=== PATIENT | male | born 2000 | race Hispanic/Latino ===

== ENCOUNTER 2023-09-30 22:52 | Emergency (ER) | payer SELFPAY ==
[2023-09-30 22:56] VITALS: BP 131/84
[2023-09-30 23:17] VITALS: BMI 20.9
[2023-09-30 23:33] LABS: % Basophils 0.3 % (0-2); % Eosinophils 0.4 % (0-6); % Immature Granulocytes 0.4 % (0-0.5); % Lymphocytes 5.9 % (20.5-51.1); % Monocytes 6.4 % (1.7-9.3); % Neutrophils 86.6 % (42.2-75.2); Absolute Basophils 0.1 10^3/uL (0-0.2); Absolute Eosinophils 0.1 10^3/uL (0-0.7); Absolute Immature Granulocytes 0.1 10^3/uL (0-0.05); Absolute Lymphocytes 1.1 10^3/uL (1.2-3.4); Absolute Monocytes 1.2 10^3/uL (0.1-0.6); Hematocrit 39.2 % (39.0-52.0); Hemoglobin 14.3 g/dL (13.0-18.0); Mean Corp Hgb Conc. 36.5 g/dL (33.0-37.0); Mean Corpuscular Hgb 30.4 pg (27.0-31.0); Mean Corpuscular Volume 83.2 fL (80.0-94.0); Mean Platelet Volume 9.7 fL (7.4-10.4); Nucleated Red Blood Cells % 0 % (-); Platelet Count 200 10^3/uL (130-400); Red Blood Cell Count 4.71 10^6/uL (4.70-6.10); Red Cell Dist. Width 12.5 % (11.5-14.5); White Blood Cell Count 18.5 10^3/uL (4.8-10.8)
[2023-09-30 23:35] VITALS: BP 116/74
[2023-09-30 23:43] LABS: ALT (SGPT) 23 U/L (0-50); AST (SGOT) 33 U/L (17-59); Albumin 4.9 g/dl (3.5-5.0); Alkaline Phosphatase 138 U/L (38-126); Blood Urea Nitrogen 18 mg/dl (9-20); Calcium 9.3 mg/dl (8.4-10.2); Carbon Dioxide 23 mmol/L (22-30); Chloride 103 mmol/L (98-107); Estimated Creatinine Clearance 116 ml/min; Glucose 148 mg/dl (70-99); Potassium 3.8 mmol/L (3.5-5.1); Sodium 140 mmol/L (135-145); Total Bilirubin 1.7 mg/dl (0.2-1.3); Total Protein 7.8 g/dl (6.3-8.2); eGFR > 60.00
[2023-09-30 23:55] LABS: Troponin I < 0.012 ng/ml
[2023-10-01] VITALS: BP 110/77
--- NOTE | 2023-10-01 00:25 | ED.GENMED ---
History of Present Illness
General
Chief Complaint: Abdominal Symptoms
Source: patient and tobacco hanger (Language line)
Exam Limitations: other (language barrier)
Time Seen by Provider: 10/01/23 00:23
History of Present Illness
History of Present Illness:
This is a 23 year old male that comes in with multiple complaints. Stats that he has left arm numbness and pain. State that his left chest hurts and that he is nauseated. State that he has 'pain in his brain'. States that this is worse tonight.
States that he has had this pain since he was 10 years old and it never goes away. States that he did vomit tonight. Denies any fever, chills, SOB, abd pain, diarrhea, dizziness, urinary burning,.
Past History
Past History
ED Past Medical History: COPD and PR
ED Past Surgical History: None
Social History
Tobacco: Non-smoker
Alcohol: None
Personal: Single
Living: with family
Review of Systems
Review of Systems
All Other Systems: ROS reviewed and negative except as documented in HPI and ROS
Constitutional: Reports no symptoms; Denies fever or chills
Respiratory: Denies cough or trouble breathing
Cardiac: Reports chest pain
ABD/GI: Reports nausea and vomiting; Denies abdominal pain or diarrhea
: Reports no symptoms; Denies dysuria, frequency or urgency
Musculoskeletal: Reports other (Left arm pain with numbness)
Skin: Reports no symptoms
Neurological: Reports headache; Denies dizzy
Psychiatric: Reports no symptoms
Phy Exam
General Physical Exam
General Presentation: mild distress
General age: appears stated age
General Skin: warm and dry
General Habitus: normal
General Mental: alert
General Hydration: appears well hydrated
ENT Exam
ENT Exam: TM's normal, pharynx normal and neck supple
Eye Exam
Eye Exam: EOMI
Cardiovascular Exam
Cardiovascular Exam: regular rate/rhythm, no edema, no murmur and normal peripheral pulses
Pulmonary Exam
Pulmonary Exam: lungs clear, no respiratory distress, no rales, chest non tender, no crackles, no rhonchi, no wheezing and no cough
Gastrointestinal Exam
Gastrointestinal Exam: normal bowel sounds, non tender, soft, no organomegaly, no pulsatile mass and non distended
Musculoskeletal Exam
Musculoskeletal Exam: full ROM and no edema
Skin Exam
Skin Exam: normal color, warm/dry, no rash and no petechia
Psychiatric Exam
Psychiatric Exam: normal mood/affect
Course
Orders/Labs/Results
Orders:
Orders
09/30/23 23:04
EKG [Electrocardiogram (*1)] Urgent
Reason for Study: Chest Pain
EKG- Treatment ONCE
09/30/23 23:[address] [CT Head W/o Iv Contrast] Urgent
Comment:
Reason For Exam: left arm weakness
09/30/23 23:27
Complete Blood Count/With Diff Urgent
Comprehensive Metabolic Panel Urgent
Troponin I Urgent
10/01/23 01:01
0.9% Sodium Chloride 1000 ml [Nss] 1,000 ml IV BOLUS
Acetaminophen [Tylenol] 650 mg PO NOW STA
Dexamethasone Sod Phosphate [Decadron] 10 mg IV NOW STA
Diphenhydramine [Benadryl] 25 mg IV NOW STA
Ketorolac [Toradol] 30 mg IV NOW STA
Prochlorperazine [Compazine] 5 mg IV NOW STA
10/01/23 02:18
Troponin I Urgent
Abnormal Lab Results
09/30/23
23:27
WBC 18.5 H 10^3/uL
(4.8-10.8)
Abs Immat Gran (auto) 0.1 H 10^3/uL
(0-0.05)
Absolute Neuts (auto) 16.0 H 10^3/uL
(1.4-6.5)
Absolute Lymphs (auto) 1.1 L 10^3/uL
(1.2-3.4)
Absolute Monos (auto) 1.2 H 10^3/uL
(0.1-0.6)
Neutrophils % 86.6 H %
(42.2-75.2)
Lymphocytes % 5.9 L %
(20.5-51.1)
Glucose 148 H mg/dl
(70-99)
Total Bilirubin 1.7 H mg/dl
(0.2-1.3)
Alkaline Phosphatase 138 H U/L
(38-126)
09/30/23 23:27
09/30/23 23:27
Leukocytosis, Hyperglycemia, Total brianna elevation. Alk phos elevation. Troponin <0.012
Repeat Troponin <0.012
Vital Signs
Initial and Last Documented VS:
Initial Vital Signs
Temp Pulse Resp BP Pulse Ox
99.4 F 96 16 131/84 99
09/30/23 22:56 09/30/23 22:56 09/30/23 22:56 09/30/23 22:56 09/30/23 22:56
Last Documented Vital Signs
Temp Pulse Resp BP Pulse Ox
99.4 F 79 41 102/64 99
09/30/23 22:56 10/01/23 02:15 10/01/23 02:15 10/01/23 02:00 10/01/23 00:00
MDM/Problems Addressed
Differential Diagnosis Includes:
Musculoskeletal pain, Migraine,
MDM/Problems Addressed:
This is a 23 year old male that comes in with multiple complaints. States that he has head pain and that his left arm and chest hurt. States that he is nauseated and did vomit tonight.
Will check labs. Give Pain medication, Chest x-ray, ECG and IV fluids.
Back into see patient. Via the language line patient and brother were notified that his blood work shows a WBC elevation. Otherwise his labs are normal. His CT of the head is normal and both Troponin's which are specific for the heart is normal.
This may be musculoskeletal pain as it hurts when patient moves. Patient to increase his water intake to 8-8oz glasses daily. [facility] or he needs to get a family doctor. Return with any concerns.
Chronic conditions affecting care:
NA
Acute Exacerbation and/or Progression of Chronic Illness:
NA
*Radiology
Radiology exam reviewed: radiology read reviewed (CT head- [facility] [place]-No acute hemorrhage, herniation or hydrocephalus. No calvarial fracture. The visualized paranasal sinuses and mastoid air cells are clear. )
*Pulse Oximetry
Patient hypoxic: no
*EKG
Interpreted by ED Provider?: Yes
Heart Rate: 86
Rate: normal
Rhythm: sinus
Garber: normal axis
Interval: normal interval
QRS Pattern: normal QRS
Ischemia: no ischemia
*Grinder Set Up Operator Interpretation
Rate: normal
Heart Rate: 96
Rhythm: sinus
*Critical Care Note
Total Time (30-74mins, 75-104mins- exclusive of procedures): Not Applicable
ED Attending Note
-
Portions of this chart may have been created with voice recognition software.� Occasional wrong word or��sound alike� substitutions may have occurred due to the inherent limitations of voice recognition software.
Discharge Plan
Departure
Patient Disposition: Home (Routine Discharge)
Date of Disposition: 10/01/23
Time of Disposition: 03:10
Patient with high blood pressure during this ER visit?: No
Condition: Good
Covid-19: Not Applicable
Discharge Problem:
Chest pain, musculoskeletal
Instructions: Musculoskeletal Pain
Referrals:
[facility] - Call in 1-3 days for appt
NONE,* [Family Provider] -
Activity Restrictions/Additional Instructions:
As discussed, your blood work shows that your WBC are elevated. Your both Troponin's which is for your heart were both normal. Your CT of the head is normal. You have been given IV medication here for pain. Please increase your water intake to 8-8oz
glasses daily. You may use Ibuprofen 600mg every 6 hours with food and alternate with Tylenol 1000mg every 6 hours for pain. You may also do ice or heat to any area that is sore. Follow up in the free clinic. IF YOU HAVE ANY OTHER CONCERNS PLEASE
RETURN TO THE EMERGENCY ROOM.
Interventions
Interventions:
*Risk Screen - Suicide Last Done: 09/30/23 23:17
*General Assessment Last Done: 09/30/23 23:17
*Neglect/Abuse Screening Last Done: 09/30/23 23:17
*ED COVID-19 Vaccine History Last Done: 09/30/23 23:17
LD-Wwqefd-[id number] Assessment Last Done: 09/30/23 23:17
Discharge Date and Time
Print Language: NIGERIEN
[2023-10-01 01:00] VITALS: BP 110/70
[2023-10-01] MEDS: NSS 1000 IV (01:21)
[2023-10-01] MEDS: DECADRON 10 MG IV (01:22)
[2023-10-01] MEDS: COMPAZINE 5 MG IV (01:23)
[2023-10-01] MEDS: BENADRYL 25 MG IV (01:23)
[2023-10-01] MEDS: TORADOL 30 MG IV (01:23)
[2023-10-01] MEDS: TYLENOL 650 MG PO (01:24)
[2023-10-01 02:00] VITALS: BP 102/64
[2023-10-01 02:52] LABS: Troponin I < 0.012 ng/ml
[2023-10-01 03:00] VITALS: BP 96/49
== END 2023-10-01 03:28 | disposition home or self-care (01) ==
LOC: EMR 22:52
PROVIDERS: Clinical Nurse Specialist Family Health; EMERGENCY PHYSICIAN Emergency Medicine
DX: M79.602 Pain in left arm (principal); R11.2 Nausea with vomiting, unspecified; R20.0 Anesthesia of skin; R53.1 Weakness; R51.9 Headache, unspecified; R73.9 Hyperglycemia, unspecified
CPT/HCPCS: 99285; 96374; 96375 ×3; 96361; 70450; 80053; 84484; 85025; 93005